=== PATIENT | female | born 1940 | race Two or more races ===

== ENCOUNTER 2023-12-28 23:33 | Inpatient (IN) | payer OTHER ==
[~2023-12-28] VITALS: Ht 158.8 cm; Wt 74.7 kg
[2023-12-29] VITALS (9 sets, daily range): BP systolic 117–143; BP diastolic 51–74; PULSE 64–93; RESP 16–20; TEMP 97.5–98.6; O2SAT 92–96
[2023-12-29] MEDS ORDERED: MORPHINE SULFATE INJ 2 MG/ml SYRG IV PRN (00:30)
[2023-12-29] MEDS ORDERED: NITROGLYCERIN 0.4 MG SL TAB SL PRN (00:30)
[2023-12-29] MEDS ORDERED: ONDANSETRON HCL 4 MG/2 ML VIAL IV PRN (00:30)
[2023-12-29] MEDS ORDERED: ACETAMINOPHEN 325 MG TAB PO PRN (00:30)
[2023-12-29] MEDS ORDERED: DEXTROSE (50%) 50ML SYRG IV PRN (00:30)
[2023-12-29] MEDS ORDERED: DOCUSATE SOD 100 MG CAP PO PRN (00:30)
[2023-12-29] MEDS ORDERED: IBU600T PO (02:51)
[2023-12-29] MEDS ORDERED: CYCL-837 PO (02:51)
[2023-12-29] MEDS ORDERED: LISI2.5T47 PO (02:51)
[2023-12-29] MEDS ORDERED: LEVO88TA4 PO (02:51)
[2023-12-29 06:38] LABS: Anion Gap 6 (5-15); Calcium 9.8 mg/dL (8.7-10.4); Carbon Dioxide 26 mmol/L (20-31); Chloride 109 mmol/L (98-107); Potassium 4.5 mmol/L (3.5-5.1); Sodium 141 mmol/L (136-145)
[2023-12-29 06:39] LABS: Basophils # (auto) 0.1 10 ^3/uL (0-0.2); Basophils % (auto) 0.8 % (0.0-2.0); Eosinophils # (auto) 0.2 10 ^3/uL (0-0.8); Eosinophils % (auto) 2.4 % (0.0-7.0); Hemoglobin 14.3 g/dL (12.2-16.2); Lymphocytes # (auto) 1.6 10 ^3/uL (0.4-5.4); Lymphocytes % (auto) 16.1 % (10.0-50.0); Mean Corpuscular Hemoglobin 30.6 pg (28.0-32.0); Mean Corpuscular Hgb Conc. 34.1 g/dL (32.0-36.0); Mean Corpuscular Volume 89.7 fL (80.0-100.0); Monocytes # (auto) 0.9 10 ^3/uL (0-1.3); Monocytes % (auto) 8.9 % (0.0-12.0); Neutrophils # (auto) 7.1 10 ^3/uL (1.6-8.6); Neutrophils % (auto) 71.8 % (37.0-80.0); Nucleated Red Blood Cells % 0.1 %; Platelet Count (auto) 238 10^3/uL (140-450); Red Blood Cells 4.69 10^6/uL (4.0-5.20); Red Cell Distribution Width 15.5 % (11.8-14.3); White Blood Cell 9.9 10^3/uL (4.4-10.8)
[2023-12-29 06:44] LABS: BUN/Creatinine Ratio 21.9 (10.0-20.0); Blood Urea Nitrogen 21 mg/dL (9-23); Glucose 131 mg/dL (74-106)
[2023-12-29] MEDS: ACCU-CHEK COMFORT CURVE STRIP VI SCH (07:05)
[2023-12-29] MEDS: InsuLIN REG 1unit/0.01ml Soln (100units/ml) SC SCH (07:08)
[2023-12-29] MEDS: FAMOTIDINE (10MG/ML) 2ML VL IV SCH (11:06)
[2023-12-29] MEDS: ENOXAPARIN SOD 40 MG/0.4 ML SYRINGE SC SCH (11:07)
[2023-12-29] MEDS: HYDROcodone-ACET 5/325MG TAB PO PRN (18:18)
[2023-12-30] VITALS (7 sets, daily range): BP systolic 92–126; BP diastolic 54–72; PULSE 68–84; RESP 15–18; TEMP 97.2–98.5; O2SAT 91–95
[2023-12-30 07:01] LABS: Basophils # (auto) 0.1 10 ^3/uL (0-0.2); Basophils % (auto) 0.8 % (0.0-2.0); Eosinophils # (auto) 0.2 10 ^3/uL (0-0.8); Eosinophils % (auto) 2.9 % (0.0-7.0); Hematocrit 41.5 % (36.0-46.0); Lymphocytes # (auto) 1.7 10 ^3/uL (0.4-5.4); Lymphocytes % (auto) 20.6 % (10.0-50.0); Mean Corpuscular Hemoglobin 30.2 pg (28.0-32.0); Mean Corpuscular Hgb Conc. 33.6 g/dL (32.0-36.0); Monocytes # (auto) 0.9 10 ^3/uL (0-1.3); Monocytes % (auto) 10.6 % (0.0-12.0); Neutrophils # (auto) 5.3 10 ^3/uL (1.6-8.6); Neutrophils % (auto) 65.1 % (37.0-80.0); Platelet Count (auto) 219 10^3/uL (140-450); Red Blood Cells 4.62 10^6/uL (4.0-5.20); Red Cell Distribution Width 15.2 % (11.8-14.3); White Blood Cell 8.1 10^3/uL (4.4-10.8)
[2023-12-30 07:13] LABS: Chloride 110 mmol/L (98-107); Potassium 4.5 mmol/L (3.5-5.1); Sodium 141 mmol/L (136-145)
[2023-12-30 07:14] LABS: Anion Gap 5 (5-15); Calcium 9.6 mg/dL (8.7-10.4); Carbon Dioxide 26 mmol/L (20-31)
[2023-12-30 07:19] LABS: Blood Urea Nitrogen 21 mg/dL (9-23); Glucose 114 mg/dL (74-106)
[2023-12-31 05:00] VITALS: BP 103/48; PULSE 84; RESP 17; TEMP 98.4; O2SAT 95
[2023-12-31 06:53] LABS: Basophils # (auto) 0 10 ^3/uL (0-0.2); Basophils % (auto) 0.5 % (0.0-2.0); Eosinophils # (auto) 0.1 10 ^3/uL (0-0.8); Eosinophils % (auto) 1.3 % (0.0-7.0); Hematocrit 43.4 % (36.0-46.0); Hemoglobin 14.8 g/dL (12.2-16.2); Lymphocytes # (auto) 0.7 10 ^3/uL (0.4-5.4); Lymphocytes % (auto) 8.3 % (10.0-50.0); Mean Corpuscular Hemoglobin 30.4 pg (28.0-32.0); Mean Corpuscular Volume 89.3 fL (80.0-100.0); Monocytes # (auto) 0.6 10 ^3/uL (0-1.3); Monocytes % (auto) 6.5 % (0.0-12.0); Neutrophils # (auto) 7.3 10 ^3/uL (1.6-8.6); Neutrophils % (auto) 83.4 % (37.0-80.0); Platelet Count (auto) 227 10^3/uL (140-450); Red Blood Cells 4.86 10^6/uL (4.0-5.20); Red Cell Distribution Width 15.7 % (11.8-14.3); White Blood Cell 8.8 10^3/uL (4.4-10.8)
[2023-12-31 07:09] LABS: Anion Gap 7 (5-15); Calcium 9.8 mg/dL (8.7-10.4); Carbon Dioxide 25 mmol/L (20-31); Chloride 105 mmol/L (98-107); Potassium 4.8 mmol/L (3.5-5.1); Sodium 137 mmol/L (136-145)
[2023-12-31 07:15] LABS: BUN/Creatinine Ratio 19.2 (10.0-20.0); Blood Urea Nitrogen 19 mg/dL (9-23); Glucose 132 mg/dL (74-106)
[2023-12-31 08:00] VITALS: PULSE 82; RESP 17
[2023-12-31 09:00] VITALS: BP 134/64; PULSE 92; RESP 17; TEMP 98.7; O2SAT 93
[2023-12-31 17:00] VITALS: BP 117/73; PULSE 96; RESP 18; TEMP 98.3; O2SAT 93
[2023-12-31 20:00] VITALS: PULSE 89; RESP 16; O2SAT 95
[2023-12-31 20:45] VITALS: BP 109/64; PULSE 98; RESP 16; TEMP 98.4; O2SAT 95
[2024-01-01] VITALS (8 sets, daily range): BP systolic 111–140; BP diastolic 56–79; PULSE 67–83; RESP 16–18; TEMP 97.8–98.3; O2SAT 92–96
[2024-01-01 05:45] LABS: Anion Gap 5 (5-15); Carbon Dioxide 27 mmol/L (20-31); Chloride 107 mmol/L (98-107); Potassium 4.4 mmol/L (3.5-5.1); Sodium 139 mmol/L (136-145)
[2024-01-01 05:46] LABS: Calcium 9.6 mg/dL (8.7-10.4)
[2024-01-01 05:51] LABS: Blood Urea Nitrogen 18 mg/dL (9-23); Glucose 116 mg/dL (74-106)
[2024-01-01 05:53] LABS: Basophils # (auto) 0 10 ^3/uL (0-0.2); Basophils % (auto) 0.7 % (0.0-2.0); Eosinophils # (auto) 0.2 10 ^3/uL (0-0.8); Eosinophils % (auto) 3.7 % (0.0-7.0); Hematocrit 43.8 % (36.0-46.0); Hemoglobin 14.6 g/dL (12.2-16.2); Lymphocytes # (auto) 1.5 10 ^3/uL (0.4-5.4); Lymphocytes % (auto) 23.7 % (10.0-50.0); Mean Corpuscular Hemoglobin 30.2 pg (28.0-32.0); Mean Corpuscular Hgb Conc. 33.3 g/dL (32.0-36.0); Mean Corpuscular Volume 90.5 fL (80.0-100.0); Monocytes # (auto) 0.9 10 ^3/uL (0-1.3); Monocytes % (auto) 14.3 % (0.0-12.0); Neutrophils # (auto) 3.7 10 ^3/uL (1.6-8.6); Neutrophils % (auto) 57.6 % (37.0-80.0); Nucleated Red Blood Cells % 0.2 %; Platelet Count (auto) 233 10^3/uL (140-450); Red Blood Cells 4.84 10^6/uL (4.0-5.20); Red Cell Distribution Width 15.3 % (11.8-14.3); White Blood Cell 6.4 10^3/uL (4.4-10.8)
[2024-01-02 01:00] VITALS: BP 136/79; PULSE 67; RESP 19; O2SAT 96
[2024-01-02] MEDS: MORPHINE SULFATE INJ 2 MG/ml SYRG IV PRN (01:47)
[2024-01-02 05:00] VITALS: BP 131/70; PULSE 73; RESP 19; TEMP 97.3; O2SAT 95
[2024-01-02 07:02] LABS: Basophils # (auto) 0.1 10 ^3/uL (0-0.2); Eosinophils # (auto) 0.3 10 ^3/uL (0-0.8); Eosinophils % (auto) 4.3 % (0.0-7.0); Hemoglobin 14.2 g/dL (12.2-16.2); Lymphocytes # (auto) 2.3 10 ^3/uL (0.4-5.4); Lymphocytes % (auto) 36.6 % (10.0-50.0); Mean Corpuscular Hemoglobin 29.8 pg (28.0-32.0); Mean Corpuscular Volume 90.4 fL (80.0-100.0); Monocytes # (auto) 0.7 10 ^3/uL (0-1.3); Monocytes % (auto) 11.9 % (0.0-12.0); Neutrophils # (auto) 2.8 10 ^3/uL (1.6-8.6); Neutrophils % (auto) 46.2 % (37.0-80.0); Nucleated Red Blood Cells % 0.1 %; Platelet Count (auto) 237 10^3/uL (140-450); Red Blood Cells 4.75 10^6/uL (4.0-5.20); Red Cell Distribution Width 15.3 % (11.8-14.3); White Blood Cell 6.2 10^3/uL (4.4-10.8)
[2024-01-02 07:07] LABS: Chloride 107 mmol/L (98-107); Potassium 4.2 mmol/L (3.5-5.1); Sodium 140 mmol/L (136-145)
[2024-01-02 07:08] LABS: Anion Gap 7 (5-15); Carbon Dioxide 26 mmol/L (20-31)
[2024-01-02 07:09] LABS: Calcium 9.8 mg/dL (8.7-10.4)
[2024-01-02 07:13] LABS: Glucose 90 mg/dL (74-106)
[2024-01-02 07:14] LABS: BUN/Creatinine Ratio 20.6 (10.0-20.0); Blood Urea Nitrogen 20 mg/dL (9-23)
[2024-01-02 08:00] VITALS: PULSE 73; RESP 20; O2SAT 95
[2024-01-02 08:32] VITALS: BP 103/66; PULSE 64; RESP 17; TEMP 97.5; O2SAT 94
[2024-01-02 12:30] VITALS: BP 124/69; PULSE 80; RESP 19; TEMP 97.9; O2SAT 94
== END 2024-01-02 15:50 | disposition left against medical advice (07) | DRG 552 ==
LOC: WEST WING 12-29 00:26
PROVIDERS: ADMIT Internal Medicine; ATTEND Internal Medicine
DX: M48.061 Spinal stenosis, lumbar region without neurogenic claudication (principal); M51.16 Intervertebral disc disorders with radiculopathy, lumbar region; E11.9 Type 2 diabetes mellitus without complications; M25.80 Other specified joint disorders, unspecified joint; Z53.29 Procedure and treatment not carried out because of patient's decision for other reasons; E03.9 Hypothyroidism, unspecified; I10 Essential (primary) hypertension; Z88.5 Allergy status to narcotic agent; Z79.4 Long term (current) use of insulin; Z79.899 Other long term (current) drug therapy
CPT/HCPCS: 36415; 72148; 73700; 80048; 82962; 85025; G0378; J1815; J3490